=== PATIENT | female | born 1975 | race Caucasian/White ===

== ENCOUNTER 2017-11-15 20:03 | Emergency (ER) | payer MEDICAID ==
[2017-11-15] MEDS: IBUPROFEN 600 MG TAB PO (22:44)
[2017-11-15 22:55] LABS: URINE PH (Dip) POC 5.5 (5.0-8.5)
[2017-11-15 22:55] LABS: URINE BLOOD (Dip) POC Trace-intact (NEGATIVE); URINE GLUCOSE (Dip) POC Negative (NEGATIVE); URINE KETONES (Dip) POC Negative (NEGATIVE); URINE LEUKOCYTE EST (Dip) POC 2+ (NEGATIVE); URINE NITRITE (Dip) POC Negative (NEGATIVE); URINE TOTAL PROTEIN POC Negative (NEGATIVE)
== END 2017-11-16 00:24 | disposition home or self-care (01) ==
LOC: FTE 11-16 00:24
DX: N30.01 Acute cystitis with hematuria (principal); D25.1 Intramural leiomyoma of uterus; N83.202 Unspecified ovarian cyst, left side; J00 Acute nasopharyngitis [common cold]
CPT/HCPCS: 76830; 76856; 81003; 81025; 99284-25

== ENCOUNTER 2018-08-20 11:15 | Emergency (ER) | payer MEDICAID ==
[2018-08-20] MEDS: IBUPROFEN 800 MG TAB PO (13:12)
[2018-08-20] MEDS: ACETAMINOPHEN 500 MG TAB PO (13:13)
== END 2018-08-20 13:48 | disposition home or self-care (01) ==
LOC: FTE 11:15
DX: J02.9 Acute pharyngitis, unspecified (principal)
CPT/HCPCS: 99282; Z7502

== ENCOUNTER 2019-02-02 08:35 | Emergency (ER) | payer SELFPAY, MEDICAID | END 2019-02-02 11:10 | disposition home or self-care (01) | LOC: FTE 08:35 | DX: R10.31 Right lower quadrant pain (principal); Z00.00 Encounter for general adult medical examination without abnormal findings | CPT/HCPCS: 76830; 76856; 99284-25 ==